=== PATIENT | male | born 1975 | race Caucasian/White ===

== ENCOUNTER 2018-04-28 21:06 | Emergency (ER) | payer MEDICAID, OTHER ==
[~2018-04-28] VITALS: Ht 180.3 cm; Wt 78.2 kg
[~2018-04-28 21:06] MED LIST: CLIN-27 PO
[2018-04-28 21:28] LABS: BASOPHILS % (AUTO) 0.6 % (0-1); EOSINOPHILS # (AUTO) 1.4 X10'3 (0-0.9); EOSINOPHILS % (AUTO) 19.7 % (0-6); HEMATOCRIT 41.1 % (42.0-52.0); HEMOGLOBIN 13.7 g/dl (14.0-17.9); LYMPHOCYTES # (AUTO) 3.2 X10'3 (1.1-4.8); MEAN CORPUSCULAR HEMOGLOBIN 29.2 PG (27.0-31.0); MEAN CORPUSCULAR HGB CONC 33.3 % (33.0-36.5); MEAN CORPUSCULAR VOLUME 87.8 FL (78-98); MEAN PLATELET VOLUME 8.4 FL (7.4-10.4); MONOCYTES # (AUTO) 0.4 X10'3 (0-0.9); NEUTROPHILS # (AUTO) 2.1 X10'3 (1.8-7.7); NEUTROPHILS % (AUTO) 29.7 % (42-75); PLATELET COUNT 284 X10'3 (140-440); RED BLOOD COUNT 4.68 X10'6 (4.70-6.10); RED CELL DISTRIBUTION WIDTH 13.3 % (11.5-14.5); WHITE BLOOD COUNT 7.2 X10'3 (4.5-11.0)
[2018-04-28] MEDS ORDERED: AMLO5TAB4 PO (21:34)
[2018-04-28] MEDS ORDERED: LISI10TA4 PO (21:34)
[2018-04-28 21:42] LABS: ALANINE AMINOTRANSFERASE 26 U/L (12-78); ALBUMIN/GLOBULIN RATIO 1.1 (1.1-1.5); ALKALINE PHOSPHATASE 70 IU/L (46-116); ANION GAP 8 (8-16); ASPARTATE AMINO TRANSFERASE 13 U/L (10-37); BILIRUBIN,TOTAL 0.5 MG/DL (0.1-1.0); BLOOD UREA NITROGEN 28 MG/DL (7-18); BUN/CREATININE RATIO 23.3 (5.4-32.0); CALCIUM 8.8 MG/DL (8.5-10.1); CHLORIDE 105 MMOL/L (99-107); GLUCOSE 93 MG/DL (70-104); MAGNESIUM 1.9 MG/DL (1.5-2.4); POTASSIUM 3.4 MMOL/L (3.5-5.1); SODIUM 140 MMOL/L (135-145); TOTAL CARBON DIOXIDE 26.9 MMOL/L (24-32); TOTAL PROTEIN 7.7 G/DL (6.4-8.2); eGFR 66 ML/MIN
[2018-04-28 21:45] LABS: PARTIAL THROMBOPLASTIN TIME 27 SECONDS (22-32)
[2018-04-28] MEDS ORDERED: potassium Cl 20 mEq SR tablet PO STA (22:13)
[2018-04-28] MEDS ORDERED: POTA20TA19 PO (22:15)
[2018-04-28 22:29] VITALS: BP 134/87
== END 2018-04-28 22:30 | disposition home or self-care (01) ==
LOC: ER 21:07
DX: R00.2 Palpitations (principal); E87.6 Hypokalemia; R07.89 Other chest pain; E78.00 Pure hypercholesterolemia, unspecified; I10 Essential (primary) hypertension; Z79.899 Other long term (current) drug therapy
CPT/HCPCS: 36415; 71045; 80053; 83735; 84484; 85025; 85610; 85730; 93005; 99284

== ENCOUNTER 2023-06-18 02:12 | Inpatient (IN) | payer OTHER ==
[~2023-06-18] VITALS: Ht 177.8 cm; Wt 75.4 kg
[~2023-06-18 02:12] MED LIST changes: +AMLO5TAB4 PO; -CLIN-27 PO; +LISI10TA27 PO
[2023-06-18 06:18] LABS: BASOPHILS # (AUTO) 0.1 X10'3 (0-0.2); BASOPHILS % (AUTO) 0.7 % (0-1); EOSINOPHILS # (AUTO) 0.2 X10'3 (0-0.9); EOSINOPHILS % (AUTO) 2.2 % (0-6); HEMATOCRIT 40.2 % (42.0-52.0); HEMOGLOBIN 13.7 g/dl (14.0-17.9); LYMPHOCYTES # (AUTO) 1.3 X10'3 (1.1-4.8); LYMPHOCYTES % (AUTO) 14.1 % (21-51); MEAN CORPUSCULAR HEMOGLOBIN 29.8 PG (27.0-31.0); MEAN CORPUSCULAR VOLUME 87.5 FL (78-98); MEAN PLATELET VOLUME 8.3 FL (7.4-10.4); MONOCYTES # (AUTO) 0.6 X10'3 (0-0.9); MONOCYTES % (AUTO) 7.2 % (2-12); NEUTROPHILS # (AUTO) 6.8 X10'3 (1.8-7.7); NEUTROPHILS % (AUTO) 75.8 % (42-75); PLATELET COUNT 308 X10'3 (140-440); RED BLOOD COUNT 4.59 X10'6 (4.70-6.10); RED CELL DISTRIBUTION WIDTH 12.8 % (11.5-14.5); WHITE BLOOD COUNT 8.9 X10'3 (4.5-11.0)
[2023-06-18 06:29] LABS: ALANINE AMINOTRANSFERASE 220 U/L (12-78); ALBUMIN 3.3 G/DL (3.4-5.0); ALBUMIN/GLOBULIN RATIO 0.7 (1.1-1.5); ALKALINE PHOSPHATASE 184 IU/L (46-116); ANION GAP 9 (8-16); ASPARTATE AMINO TRANSFERASE 59 U/L (10-37); BILIRUBIN,TOTAL 0.9 MG/DL (0.1-1.0); BLOOD UREA NITROGEN 10 MG/DL (7-18); C-REACTIVE PROTEIN 4.95 MG/DL (0.0-0.5); CHLORIDE 102 MMOL/L (99-107); CREATININE 0.91 MG/DL (0.60-1.10); GLUCOSE 100 MG/DL (70-104); MAGNESIUM 1.9 MG/DL (1.5-2.4); SODIUM 137 MMOL/L (135-145); TOTAL CARBON DIOXIDE 26.5 MMOL/L (24-32); eCRCL 91 ML/MIN; eGFR 89 ML/MIN
[2023-06-18 06:32] LABS: BILIRUBIN,URINE NEGATIVE (Neg); CLARITY,URINE CLEAR (Clear); COLOR,URINE YELLOW (Yellow); GLUCOSE, URINE NEGATIVE (Neg); KETONES,URINE NEGATIVE (Neg); LEUKOCYTE ESTERASE ,URINE NEGATIVE (Neg); NITRITES, URINE NEGATIVE (Neg); OCCULT BLOOD,URINE NEGATIVE (Neg); PROTEIN,URINE NEGATIVE (Neg); UROBILINOGEN,URINE 0.2 E.U/dL (0.2-1.0)
[2023-06-18 06:38] LABS: UA COLLECTION TYPE URINAL
[2023-06-18] MEDS ORDERED: azithromycin/NS 500mg/250ml 250 ML IV ONE (08:35)
[2023-06-18] MEDS ORDERED: acetaminophen 325mg tablet PO ONE (08:35)
[2023-06-18] MEDS ORDERED: CefTRIAXone 2gm/D5W 50ml BAG 50 ML IV ONE (08:35)
[2023-06-18] MEDS ORDERED: ipratropium/albuterol 3ml nebule NEB SCH (11:20)
[2023-06-18] MEDS ORDERED: ipratropium/albuterol 3ml nebule NEB PRN (11:20)
[2023-06-18 12:02] LABS: BASOPHILS # (AUTO) 0.1 X10'3 (0-0.2); EOSINOPHILS # (AUTO) 0.2 X10'3 (0-0.9); EOSINOPHILS % (AUTO) 2.2 % (0-6); HEMATOCRIT 37.4 % (42.0-52.0); HEMOGLOBIN 12.6 g/dl (14.0-17.9); LYMPHOCYTES # (AUTO) 1.8 X10'3 (1.1-4.8); LYMPHOCYTES % (AUTO) 20.8 % (21-51); MEAN CORPUSCULAR HEMOGLOBIN 29.3 PG (27.0-31.0); MEAN CORPUSCULAR HGB CONC 33.7 g/dL (33.0-36.5); MEAN PLATELET VOLUME 8.3 FL (7.4-10.4); MONOCYTES # (AUTO) 0.7 X10'3 (0-0.9); MONOCYTES % (AUTO) 7.5 % (2-12); NEUTROPHILS % (AUTO) 68.5 % (42-75); PLATELET COUNT 309 X10'3 (140-440); RED CELL DISTRIBUTION WIDTH 12.8 % (11.5-14.5); WHITE BLOOD COUNT 8.8 X10'3 (4.5-11.0)
[2023-06-18 12:34] LABS: ALANINE AMINOTRANSFERASE 176 U/L (12-78); ALBUMIN/GLOBULIN RATIO 0.7 (1.1-1.5); ALKALINE PHOSPHATASE 166 IU/L (46-116); ANION GAP 10 (8-16); ASPARTATE AMINO TRANSFERASE 38 U/L (10-37); BILIRUBIN,TOTAL 0.8 MG/DL (0.1-1.0); BLOOD UREA NITROGEN 11 MG/DL (7-18); BUN/CREATININE RATIO 11.6 (10.0-20.0); CALCIUM 8.8 MG/DL (8.5-10.1); CHLORIDE 102 MMOL/L (99-107); CREATININE 0.95 MG/DL (0.60-1.10); GLUCOSE 122 MG/DL (70-104); POTASSIUM 3.3 MMOL/L (3.5-5.1); SODIUM 137 MMOL/L (135-145); TOTAL CARBON DIOXIDE 25.3 MMOL/L (24-32); TOTAL PROTEIN 7.4 G/DL (6.4-8.2); eCRCL 87 ML/MIN; eGFR 85 ML/MIN
[2023-06-18 12:46] LABS: PRO BRAIN NATRIURETIC PEPTIDE 55 PG/ML (0-125)
[2023-06-18] MEDS ORDERED: mag hydrox/Alum hydrox/simeth 30ml oral suspension PO PRN (13:00)
[2023-06-18] MEDS ORDERED: magnesium hydroxide 30ml (MOM) UD suspension PO PRN (13:00)
[2023-06-18] MEDS ORDERED: ondansetron/PF 4mg/2ml inj IV PRN (13:00)
[2023-06-18] MEDS ORDERED: acetaminophen 325mg tablet PO PRN (13:00)
[2023-06-18] MEDS ORDERED: potassium Cl 40MEQ/1/2NS 520ml 520 ML IV PRN (13:00)
[2023-06-18] MEDS ORDERED: potassium Cl 20 mEq SR tablet PO PRN (13:00)
[2023-06-18] MEDS ORDERED: magnesium 2GM in 50ml NS 50 ML IV PRN (13:00)
[2023-06-18] MEDS ORDERED: magnesium 4gm in 100ml NS 100 ML IV PRN (13:00)
[2023-06-18 13:02] VITALS: PULSE 100; RESP 14; O2SAT 99
[2023-06-18] MEDS: potassium Cl 20 mEq SR tablet PO PRN ×2 (13:35→23:56)
[2023-06-18] MEDS ORDERED: iohexol 300mg/ml 100ml inj. ONE (14:31)
[2023-06-18 16:45] VITALS: BP 139/79; PULSE 107; RESP 18; TEMP 98.2; O2SAT 99
[2023-06-18 17:00] VITALS: RESP 20
[2023-06-18] MEDS: HYDROcodone/acetaminophen 5mg/325mg tablet PO PRN ×2 (17:40→22:20)
[2023-06-18 18:00] VITALS: BP 134/79; PULSE 107; RESP 18; TEMP 97.6; O2SAT 99
[2023-06-18] MEDS: pregabalin 75mg capsule PO SCH (19:38)
[2023-06-18] MEDS: docusate sod 100mg capsule PO SCH (19:40)
[2023-06-18] MEDS: heparin, porcine 5000 units/ml vial SQ SCH (19:49)
[2023-06-18] MEDS: K and/or MAG REPLACEMENT MC SCH (19:50)
[2023-06-18 20:00] VITALS: RESP 18; O2SAT 95
[2023-06-18 21:20] LABS: HIV ANTIBODY 1&2 RAPID NON-REACTIVE (Neg)
[2023-06-18 22:00] VITALS: BP 113/56; PULSE 90; RESP 16; TEMP 98.3; O2SAT 98
[2023-06-18] MEDS: amLODIPine 5mg tablet PO SCH (22:19)
[2023-06-18] MEDS: nortriptyline 10mg capsule PO SCH (22:23)
[2023-06-19] VITALS (9 sets, daily range): BP systolic 105–134; BP diastolic 65–83; PULSE 67–101; RESP 15–18; TEMP 97.4–100.8; O2SAT 91–98
[2023-06-19 06:08] LABS: BASOPHILS # (AUTO) 0.1 X10'3 (0-0.2); BASOPHILS % (AUTO) 0.8 % (0-1); EOSINOPHILS # (AUTO) 0.3 X10'3 (0-0.9); EOSINOPHILS % (AUTO) 3.1 % (0-6); HEMATOCRIT 39.5 % (42.0-52.0); HEMOGLOBIN 13.3 g/dl (14.0-17.9); LYMPHOCYTES % (AUTO) 23.7 % (21-51); MEAN CORPUSCULAR HEMOGLOBIN 29.5 PG (27.0-31.0); MEAN CORPUSCULAR HGB CONC 33.7 g/dL (33.0-36.5); MEAN CORPUSCULAR VOLUME 87.4 FL (78-98); MEAN PLATELET VOLUME 8.2 FL (7.4-10.4); MONOCYTES # (AUTO) 0.8 X10'3 (0-0.9); MONOCYTES % (AUTO) 9.9 % (2-12); NEUTROPHILS # (AUTO) 5.2 X10'3 (1.8-7.7); NEUTROPHILS % (AUTO) 62.5 % (42-75); PLATELET COUNT 361 X10'3 (140-440); RED BLOOD COUNT 4.52 X10'6 (4.70-6.10); RED CELL DISTRIBUTION WIDTH 12.5 % (11.5-14.5); WHITE BLOOD COUNT 8.3 X10'3 (4.5-11.0)
[2023-06-19 06:30] LABS: ALANINE AMINOTRANSFERASE 155 U/L (12-78); ALBUMIN/GLOBULIN RATIO 0.6 (1.1-1.5); ALKALINE PHOSPHATASE 178 IU/L (46-116); ANION GAP 12 (8-16); ASPARTATE AMINO TRANSFERASE 31 U/L (10-37); BILIRUBIN,TOTAL 0.7 MG/DL (0.1-1.0); BLOOD UREA NITROGEN 17 MG/DL (7-18); BUN/CREATININE RATIO 15.3 (10.0-20.0); CHLORIDE 98 MMOL/L (99-107); CREATININE 1.11 MG/DL (0.60-1.10); GLUCOSE 97 MG/DL (70-104); MAGNESIUM 2.2 MG/DL (1.5-2.4); POTASSIUM 3.9 MMOL/L (3.5-5.1); SODIUM 135 MMOL/L (135-145); TOTAL CARBON DIOXIDE 25.2 MMOL/L (24-32); URIC ACID 5.4 MG/DL (3.5-7.2); eCRCL 75 ML/MIN; eGFR 71 ML/MIN
[2023-06-19 07:57] LABS: RHEUM FACTOR QUAL REFLEX TITER NEGATIVE (Neg)
[2023-06-19] MEDS ORDERED: lisinopril 20mg tablet PO SCH (08:00)
[2023-06-19] MEDS: K and/or MAG REPLACEMENT MC SCH ×2 (08:00→20:00)
[2023-06-19] MEDS: docusate sod 100mg capsule PO SCH ×2 (08:31→20:00)
[2023-06-19] MEDS: pregabalin 75mg capsule PO SCH ×2 (08:31→20:00)
[2023-06-19] MEDS: heparin, porcine 5000 units/ml vial SQ SCH ×2 (08:32→20:00)
[2023-06-19] MEDS: HYDROcodone/acetaminophen 10/325mg tab PO PRN ×2 (08:36→13:59)
[2023-06-19] MEDS ORDERED: colchicine 0.6mg tablet PO ONE ×2 (12:00→12:05)
[2023-06-19] MEDS ORDERED: indomethacin 25mg capsule PO SCH ×2 (12:30→15:40)
[2023-06-19] MEDS: predniSONE 20 mg tablet PO SCH (13:59)
[2023-06-19] MEDS: nortriptyline 10mg capsule PO SCH (21:00)
[2023-06-19] MEDS: amLODIPine 5mg tablet PO SCH (21:00)
[2023-06-19] MEDS ORDERED: diphenhydrAMINE 50 mg/ml inj IV ONE ×2 (21:15→23:15)
[2023-06-19] MEDS ORDERED: diphenhydrAMINE 50 mg/ml inj ONE (21:17)
[2023-06-20] VITALS (10 sets, daily range): BP systolic 95–123; BP diastolic 54–80; PULSE 65–86; RESP 18; TEMP 97.3–98; O2SAT 94–100
[2023-06-20 06:18] LABS: BASOPHILS % (AUTO) 0.5 % (0-1); EOSINOPHILS % (AUTO) 0.1 % (0-6); HEMATOCRIT 37.4 % (42.0-52.0); HEMOGLOBIN 12.8 g/dl (14.0-17.9); LYMPHOCYTES # (AUTO) 1.1 X10'3 (1.1-4.8); LYMPHOCYTES % (AUTO) 10.4 % (21-51); MEAN CORPUSCULAR HEMOGLOBIN 29.7 PG (27.0-31.0); MEAN CORPUSCULAR HGB CONC 34.3 g/dL (33.0-36.5); MEAN CORPUSCULAR VOLUME 86.4 FL (78-98); MONOCYTES # (AUTO) 0.7 X10'3 (0-0.9); NEUTROPHILS # (AUTO) 8.6 X10'3 (1.8-7.7); PLATELET COUNT 359 X10'3 (140-440); RED BLOOD COUNT 4.32 X10'6 (4.70-6.10); RED CELL DISTRIBUTION WIDTH 12.4 % (11.5-14.5); WHITE BLOOD COUNT 10.5 X10'3 (4.5-11.0)
[2023-06-20 06:23] LABS: ALANINE AMINOTRANSFERASE 140 U/L (12-78); ALBUMIN 2.8 G/DL (3.4-5.0); ALBUMIN/GLOBULIN RATIO 0.7 (1.1-1.5); ALKALINE PHOSPHATASE 167 IU/L (46-116); ANION GAP 11 (8-16); ASPARTATE AMINO TRANSFERASE 40 U/L (10-37); BILIRUBIN,TOTAL 0.5 MG/DL (0.1-1.0); BLOOD UREA NITROGEN 25 MG/DL (7-18); BUN/CREATININE RATIO 27.2 (10.0-20.0); CALCIUM 8.4 MG/DL (8.5-10.1); CHLORIDE 100 MMOL/L (99-107); CREATININE 0.92 MG/DL (0.60-1.10); GLUCOSE 117 MG/DL (70-104); MAGNESIUM 2.3 MG/DL (1.5-2.4); POTASSIUM 5.1 MMOL/L (3.5-5.1); SODIUM 136 MMOL/L (135-145); TOTAL CARBON DIOXIDE 24.8 MMOL/L (24-32); TOTAL PROTEIN 6.8 G/DL (6.4-8.2); eCRCL 101 ML/MIN; eGFR 88 ML/MIN
[2023-06-20] MEDS: docusate sod 100mg capsule PO SCH ×2 (08:00→19:54)
[2023-06-20] MEDS: predniSONE 20 mg tablet PO SCH (08:00)
[2023-06-20] MEDS: K and/or MAG REPLACEMENT MC SCH ×2 (08:00→20:00)
[2023-06-20] MEDS: pregabalin 75mg capsule PO SCH (08:00)
[2023-06-20] MEDS: heparin, porcine 5000 units/ml vial SQ SCH ×2 (08:00→19:55)
[2023-06-20] MEDS ORDERED: epiNEPHrine 1 mg/ml inj IM STA ×2 (08:54→10:13)
[2023-06-20] MEDS ORDERED: famotidine/PF 10 mg/ml inj IV ONE (09:45)
[2023-06-20] MEDS ORDERED: diphenhydrAMINE 50 mg/ml inj IV ONE (09:45)
[2023-06-20 10:22] LABS: URIC ACID 6.7 MG/DL (3.5-7.2)
[2023-06-20] MEDS ORDERED: methylPREDNISolone sod succ 125mg/2ml vial IV ONE (14:15)
[2023-06-20 17:18] LABS: HBSAG SCREEN Negative (Negative); HEP A AB, IGM Negative (Negative); HEP B CORE AB, IGM Negative (Negative); HEPATITIS C VIRUS ANTIBODY Non Reactive (Non Reactive)
[2023-06-20] MEDS: amLODIPine 5mg tablet PO SCH ×4 (18:27→18:34)
[2023-06-21 06:00] VITALS: BP 138/92; PULSE 72; RESP 17; TEMP 97.8; O2SAT 97
[2023-06-21 06:12] LABS: BASOPHILS # (AUTO) 0.1 X10'3 (0-0.2); BASOPHILS % (AUTO) 0.7 % (0-1); EOSINOPHILS % (AUTO) 0 % (0-6); HEMATOCRIT 38.8 % (42.0-52.0); HEMOGLOBIN 12.9 g/dl (14.0-17.9); LYMPHOCYTES # (AUTO) 0.9 X10'3 (1.1-4.8); LYMPHOCYTES % (AUTO) 8.3 % (21-51); MEAN CORPUSCULAR HEMOGLOBIN 29.2 PG (27.0-31.0); MEAN CORPUSCULAR HGB CONC 33.3 g/dL (33.0-36.5); MEAN CORPUSCULAR VOLUME 87.4 FL (78-98); MEAN PLATELET VOLUME 8.4 FL (7.4-10.4); MONOCYTES # (AUTO) 0.3 X10'3 (0-0.9); MONOCYTES % (AUTO) 2.9 % (2-12); NEUTROPHILS # (AUTO) 9.1 X10'3 (1.8-7.7); NEUTROPHILS % (AUTO) 88.1 % (42-75); PLATELET COUNT 398 X10'3 (140-440); RED BLOOD COUNT 4.44 X10'6 (4.70-6.10); RED CELL DISTRIBUTION WIDTH 12.8 % (11.5-14.5); WHITE BLOOD COUNT 10.4 X10'3 (4.5-11.0)
[2023-06-21 06:27] LABS: ALANINE AMINOTRANSFERASE 134 U/L (12-78); ALBUMIN 2.9 G/DL (3.4-5.0); ALBUMIN/GLOBULIN RATIO 0.6 (1.1-1.5); ALKALINE PHOSPHATASE 157 IU/L (46-116); ANION GAP 10 (8-16); ASPARTATE AMINO TRANSFERASE 39 U/L (10-37); BILIRUBIN,TOTAL 0.3 MG/DL (0.1-1.0); BLOOD UREA NITROGEN 25 MG/DL (7-18); BUN/CREATININE RATIO 27.5 (10.0-20.0); CALCIUM 9.1 MG/DL (8.5-10.1); CHLORIDE 103 MMOL/L (99-107); CREATININE 0.91 MG/DL (0.60-1.10); GLUCOSE 120 MG/DL (70-104); MAGNESIUM 2.2 MG/DL (1.5-2.4); POTASSIUM 4.7 MMOL/L (3.5-5.1); SODIUM 138 MMOL/L (135-145); TOTAL CARBON DIOXIDE 25.5 MMOL/L (24-32); TOTAL PROTEIN 7.8 G/DL (6.4-8.2); eCRCL 103 ML/MIN; eGFR 89 ML/MIN
[2023-06-21 08:00] VITALS: RESP 17; O2SAT 97
[2023-06-21] MEDS ORDERED: methylPREDNISolone sod succ 125mg/2ml vial IV SCH (08:00)
[2023-06-21] MEDS: docusate sod 100mg capsule PO SCH (08:00)
[2023-06-21] MEDS: K and/or MAG REPLACEMENT MC SCH (08:00)
[2023-06-21] MEDS: heparin, porcine 5000 units/ml vial SQ SCH (08:00)
[2023-06-21 08:30] VITALS: RESP 16; O2SAT 96
[2023-06-21] MEDS ORDERED: colchicine 0.6mg tablet PO ONE (08:40)
[2023-06-21 10:00] VITALS: BP 138/82; PULSE 92; RESP 16; TEMP 98.7; O2SAT 96
[2023-06-21] MEDS ORDERED: COLC0.6T72 PO (14:46)
[2023-06-21] MEDS ORDERED: METH4TAB81 PO (14:46)
[2023-06-21] MEDS ORDERED: EPIN0.3P3 IM (14:46)
[2023-06-21] MEDS ORDERED: IBUP-1986 PO (14:46)
[2023-06-24 13:37] LABS: ATYPICAL PANCA <1:20 titer (Neg:<1:20); CYTOPLASMIC (C-ANCA) <1:20 titer (Neg:<1:20); PERINUCLEAR (P-ANCA) <1:20 titer (Neg:<1:20)
== END 2023-06-21 17:58 | disposition home or self-care (01) | DRG 915 ==
LOC: ER 02:13 → ED HOLD 13:06 → ORTHO 4S 16:28
PROVIDERS: ADMIT Family Medicine; ATTEND Family Medicine
PROC: BW211ZZ Computerized Tomography (CT Scan) of Abdomen and Pelvis using Low Osmolar Contrast (ICD-10-PCS; principal; 2023-06-18)
DX: T78.3XXA Angioneurotic edema, initial encounter (principal); N17.0 Acute kidney failure with tubular necrosis; J20.9 Acute bronchitis, unspecified; E78.00 Pure hypercholesterolemia, unspecified; I10 Essential (primary) hypertension; M10.9 Gout, unspecified; R74.01 Elevation of levels of liver transaminase levels; D64.9 Anemia, unspecified; M79.10 Myalgia, unspecified site; Z20.822 Contact with and (suspected) exposure to COVID-19; T50.905A Adverse effect of unspecified drugs, medicaments and biological substances, initial encounter; Y92.89 Other specified places as the place of occurrence of the external cause; Z79.899 Other long term (current) drug therapy; Z80.1 Family history of malignant neoplasm of trachea, bronchus and lung; Z82.49 Family history of ischemic heart disease and other diseases of the circulatory system; Z88.1 Allergy status to other antibiotic agents
CPT/HCPCS: 36415; 71045; 73620; 74178; 80053; 80074; 81003; 83605; 83735; 83880; 84145; 84484; 84550; 85025; 85651; 86140; 86256; 86430; 86703; 87040; 87502; 87503; 87811; 93005; 99285; G0378; J0171; J0696; J1200; J1644; J2930; J3490; J7512; Q9967